=== PATIENT | female | born 1955 | race Caucasian/White ===

== ENCOUNTER 2016-05-19 08:41 | Outpatient (CLI) | payer BC ==
[2016-05-19 09:51] LABS: ALT (SGPT) 30 U/L (0-55); AST (SGOT) 18 U/L (5-34); Alkaline Phosphatase 107 U/L (40-150); Anion Gap 14 mmol/L (10-20); BUN (Urea Nitrogen) 16 mg/dL (9.8-20.1); Bilirubin, Total 0.5 mg/dL (0.2-1.2); Calc. Creatinine Clearance 0 mL/min (70-130); Calcium 9.1 mg/dL (7.8-10.44); Carbon Dioxide 26 mmol/L (22-29); Chloride 107 mmol/L (98-107); Estimated GFR-MDRD 62; Globulin 2.3 g/dL (2.4-3.5); LDL Cholesterol, Calculated 77 mg/dL; Protein, Total 6.5 g/dL (6.0-8.3)
[2016-05-19 11:33] LABS: #Basophils 0.1 thou/uL (0.0-0.2); #Eosinphils 0.1 thou/uL (0.0-0.7); #Lymphocytes 1.9 thou/uL (1.20-3.40); #Monocytes 0.5 thou/uL (0.11-0.59); %Basophils 1.2 % (0.0-1.0); %Eosinophils 1.2 % (0.0-10.0); %Monocytes 8.5 % (0.0-10.0); Hematocrit 45.1 % (36.0-47.0); Mean Platelet Volume 6.1 fL (7.4-10.4); Red Blood Cell (RBC) Count 4.78 mill/uL (4.20-5.40); White Blood Cell (WBC) Count 5.4 thou/uL (4.8-10.8)
== END 2016-05-19 08:42 | disposition home or self-care (01) ==
LOC: BURLAB 08:41
PROVIDERS: ATTEND Family Medicine
DX: I10 Essential (primary) hypertension (principal); E78.5 Hyperlipidemia, unspecified
CPT/HCPCS: 36415; 80053; 80061; 84443; 85025

== ENCOUNTER 2016-06-02 09:46 | Outpatient (CLI) | payer BC ==
[2016-06-02 16:21] LABS: Hemoglobin A1c 5.5 % (4.0-6.0)
== END 2016-06-02 09:47 | disposition home or self-care (01) ==
LOC: LABLEX 09:46
PROVIDERS: ATTEND Family Medicine
DX: R73.09 Other abnormal glucose (principal)
CPT/HCPCS: 83036